=== PATIENT | male | born 1950 | race Caucasian/White ===

== ENCOUNTER 2017-08-15 13:37 | Outpatient (RCR) | payer OTHER ==
[~2017-08-15 13:37] MED LIST: ACHD5005 PO; DCS100C PO
== END 2017-11-13 | disposition home or self-care (01) ==
LOC: ONC 13:37
PROVIDERS: ATTEND Radiology Radiation Oncology
DX: C61 Malignant neoplasm of prostate (principal)
CPT/HCPCS: 36415; 84153; 99204

== ENCOUNTER 2017-11-21 12:17 | Outpatient (RCR) | payer OTHER | END 2018-02-19 | disposition home or self-care (01) | LOC: ONC 12:17 | PROVIDERS: ATTEND Radiology Radiation Oncology | DX: C61 Malignant neoplasm of prostate (principal) | CPT/HCPCS: 99213 ==

== ENCOUNTER 2018-04-04 09:26 | Outpatient (RCR) | payer OTHER | END 2018-04-08 | disposition home or self-care (01) | LOC: ONC 09:26 | PROVIDERS: ATTEND Radiology Radiation Oncology | DX: C61 Malignant neoplasm of prostate (principal) | CPT/HCPCS: 77334; 99213 ==

== ENCOUNTER 2018-06-13 14:04 | Outpatient (RCR) | payer OTHER | END 2018-07-08 | disposition home or self-care (01) | LOC: ONC 14:04 | PROVIDERS: ATTEND Radiology Radiation Oncology | DX: Z51.0 Encounter for antineoplastic radiation therapy (principal); C61 Malignant neoplasm of prostate; Z85.528 Personal history of other malignant neoplasm of kidney; B18.2 Chronic viral hepatitis C; I12.9 Hypertensive chronic kidney disease with stage 1 through stage 4 chronic kidney disease, or unspecified chronic kidney disease; N18.9 Chronic kidney disease, unspecified; E11.9 Type 2 diabetes mellitus without complications; E78.5 Hyperlipidemia, unspecified; Z79.899 Other long term (current) drug therapy | CPT/HCPCS: 77300; 77301; 77336; 77338; 77385 ==